=== PATIENT | female | born 1950 | race Caucasian/White ===

== ENCOUNTER 2025-05-29 19:32 | Emergency (ER) | payer BC, MEDICARE ==
[~2025-05-29] VITALS: Ht 152.4 cm; Wt 93.6 kg
[2025-05-29] MEDS: KETOROLAC 30 MG/ML 1 ML VIAL IM ONE (21:40)
[2025-05-29] MEDS: ACETAMINOPHEN 500 MG TAB PO ONE (21:41)
[2025-05-29] MEDS: LIDOCAINE 5% PATCH TD ONE (21:41)
[2025-05-30] MEDS ORDERED: NAPR1TAB83 PO (00:34)
[2025-05-30] MEDS ORDERED: LIDO5TD TOP (00:34)
[2025-05-30] MEDS ORDERED: ACET-897 PO (00:34)
[2025-05-30] MEDS: HYDROMORPHONE HCL 0.5 MG/0.5 ML SYRINGE IM PRN (00:47)
[2025-05-30 03:02] VITALS: O2SAT 95
[2025-05-30 03:15] VITALS: BP 178/74
[2025-05-30 03:26] VITALS: TEMP 97.8
[2025-05-31] MEDS ORDERED: METH-1165 PO (13:29)
[2025-05-31] MEDS ORDERED: MEDR4PAK PO (13:29)
== END 2025-05-30 03:29 | disposition home or self-care (01) ==
LOC: M ED 19:32
DX: M51.16 Intervertebral disc disorders with radiculopathy, lumbar region (principal); M43.16 Spondylolisthesis, lumbar region; M43.17 Spondylolisthesis, lumbosacral region; M85.88 Other specified disorders of bone density and structure, other site; Z88.5 Allergy status to narcotic agent; Z91.013 Allergy to seafood; Z79.1 Long term (current) use of non-steroidal anti-inflammatories (NSAID); Z79.899 Other long term (current) drug therapy
CPT/HCPCS: 72110; 73502; 96372; 99285; J1100; J1171; J1885

== ENCOUNTER 2025-05-31 07:54 | Emergency (ER) | payer MEDICARE ==
[~2025-05-31] VITALS: Ht 152.4 cm; Wt 93.6 kg
[~2025-05-31 07:54] MED LIST: ACET-897 PO; LIDO5TD TOP; NAPR1TAB83 PO
[2025-05-31] MEDS: HYDROMORPHONE HCL 0.5 MG/0.5 ML SYRINGE IM ONE (11:47)
[2025-05-31] MEDS ORDERED: MEDR4PAK PO (13:29)
[2025-05-31] MEDS ORDERED: METH-1165 PO (13:29)
[2025-05-31 14:08] VITALS: BP 152/64; TEMP 97.9; O2SAT 96
== END 2025-05-31 14:11 | disposition home or self-care (01) ==
LOC: M ED 07:54
DX: M43.06 Spondylolysis, lumbar region (principal); M53.3 Sacrococcygeal disorders, not elsewhere classified; E11.9 Type 2 diabetes mellitus without complications; I10 Essential (primary) hypertension; Z88.6 Allergy status to analgesic agent; Z79.899 Other long term (current) drug therapy; Z79.1 Long term (current) use of non-steroidal anti-inflammatories (NSAID)
CPT/HCPCS: 72131; 73700; 96372; 99284; J1171

== ENCOUNTER → 2025-06-12 | Outpatient (CLI) | payer MEDICARE ==
[~2025-06-12] MED LIST changes: +MEDR4PAK PO; +METH-1165 PO
== END ==
LOC: M PLAIMG 08:43
PROVIDERS: ATTEND Student in an Organized Health Care Education/Training Program
DX: M51.26 Other intervertebral disc displacement, lumbar region (principal); M47.26 Other spondylosis with radiculopathy, lumbar region; M25.78 Osteophyte, vertebrae; M48.061 Spinal stenosis, lumbar region without neurogenic claudication